=== PATIENT | female | born 1995 | race Two or more races ===

== ENCOUNTER 2023-05-22 10:36 | Inpatient (IN) | payer OTHER ==
[~2023-05-22] VITALS: Ht 160 cm; Wt 80.0 kg
[2023-05-22] MEDS ORDERED: ACETAMINOPHEN 325 MG TABLET PO PRN (13:00)
[2023-05-22] MEDS ORDERED: MAGNESIUM HYDROXIDE SUSPENSION 30 ML UDCUP PO PRN (13:00)
[2023-05-22] MEDS ORDERED: ZOLPIDEM TARTRATE 5 MG TABLET PO PRN (13:00)
[2023-05-22] MEDS ORDERED: BENZONATATE 100 MG CAPSULE PO PRN (13:00)
[2023-05-22 13:28] LABS: COVID AG,FIA SOURCE NASAL SWAB
[2023-05-22 13:51] LABS: SARS-COV2 (COVID) ANTIGEN,FIA Negative (Negative)
[2023-05-22] MEDS: HEPARIN SODIUM,PORCINE 5,000 UNITS/ML VIAL SQ SCH ×2 (15:13→23:51)
[2023-05-22 15:32] LABS: APPEARANCE,URINE CLEAR (CLEAR); BILIRUBIN,URINE NEGATIVE (NEGATIVE); COLOR,URINE YELLOW (YELLOW); GLUCOSE, URINE (UA) NEGATIVE (NEGATIVE); LEUKOCYTE ESTERASE ,URINE NEGATIVE (NEGATIVE); NITRATE,URINE NEGATIVE (NEGATIVE); OCCULT BLOOD,URINE NEGATIVE (NEGATIVE); PROTEIN,URINE NEGATIVE (NEGATIVE); SPECIFIC GRAVITIY, URINE 1.019 (1.003-1.030); UROBILINOGEN,URINE <=1.0 mg/dL (<=1.0)
[2023-05-22 17:09] VITALS: BP 109/57; PULSE 58; RESP 20; TEMP 98.6; O2SAT 100
[2023-05-22 17:37] VITALS: BP 109/57; PULSE 58; RESP 20; TEMP 98.6
[2023-05-22 20:32] VITALS: BP 109/61; PULSE 60; RESP 20; TEMP 97.8
[2023-05-23 05:22] VITALS: BP 98/54; PULSE 57; RESP 18; TEMP 97.6
[2023-05-23 08:13] VITALS: BP 106/56; PULSE 61; RESP 18; TEMP 97.8
[2023-05-23] MEDS: FAMOTIDINE 20 MG TABLET PO SCH (08:18)
[2023-05-23] MEDS: HEPARIN SODIUM,PORCINE 5,000 UNITS/ML VIAL SQ SCH ×3 (08:18→22:59)
[2023-05-23 19:35] VITALS: BP 122/52; PULSE 66; RESP 18; TEMP 99
[2023-05-24 04:05] VITALS: BP 102/55; PULSE 60; RESP 18; TEMP 98.3
[2023-05-24] MEDS: FAMOTIDINE 20 MG TABLET PO SCH (07:40)
[2023-05-24] MEDS: HEPARIN SODIUM,PORCINE 5,000 UNITS/ML VIAL SQ SCH ×3 (07:42→23:41)
[2023-05-24 08:10] VITALS: BP 112/60; PULSE 55; RESP 20; TEMP 98.1
[2023-05-24 15:52] VITALS: BP 110/72; PULSE 71; RESP 20; TEMP 99
[2023-05-24 19:35] VITALS: BP 124/46; PULSE 69; RESP 20; TEMP 98.2
[2023-05-25 03:25] VITALS: BP 95/58; PULSE 53; RESP 20; TEMP 97.9
[2023-05-25 08:31] VITALS: BP 108/63; PULSE 53; RESP 18; TEMP 98.1
[2023-05-25] MEDS: HEPARIN SODIUM,PORCINE 5,000 UNITS/ML VIAL SQ SCH ×3 (09:07→23:40)
[2023-05-25] MEDS: FAMOTIDINE 20 MG TABLET PO SCH (09:07)
[2023-05-25 17:12] VITALS: BP 112/68; PULSE 80; RESP 20; TEMP 98.9
[2023-05-25 20:05] VITALS: BP 126/54; PULSE 55; RESP 20; TEMP 98.9
[2023-05-26 04:56] VITALS: BP 103/56; PULSE 58; RESP 18; TEMP 98
[2023-05-26 08:00] VITALS: BP 110/65; PULSE 65; RESP 18; TEMP 97.9
[2023-05-26] MEDS: FAMOTIDINE 20 MG TABLET PO SCH (08:59)
[2023-05-26] MEDS: HEPARIN SODIUM,PORCINE 5,000 UNITS/ML VIAL SQ SCH ×3 (09:06→23:04)
[2023-05-26 21:39] VITALS: BP 102/56; PULSE 60; RESP 18; TEMP 97.6
[2023-05-27 05:06] VITALS: BP 110/52; PULSE 58; RESP 18; TEMP 98.2
[2023-05-27 07:00] VITALS: BP 118/64; PULSE 66; RESP 20; TEMP 97.8
[2023-05-27] MEDS: HEPARIN SODIUM,PORCINE 5,000 UNITS/ML VIAL SQ SCH ×2 (09:11→16:40)
[2023-05-27] MEDS: FAMOTIDINE 20 MG TABLET PO SCH (09:13)
[2023-05-27 17:56] LABS: COVID AG,FIA SOURCE NASAL SWAB
[2023-05-27 18:06] LABS: SARS-COV2 (COVID) ANTIGEN,FIA Negative (Negative)
[2023-05-27 20:38] VITALS: BP 100/56; PULSE 68; RESP 18; TEMP 98.4
[2023-05-28] MEDS: HEPARIN SODIUM,PORCINE 5,000 UNITS/ML VIAL SQ SCH ×3 (00:54→16:54)
[2023-05-28 05:01] VITALS: BP 131/71; PULSE 50; RESP 18; TEMP 97.4
[2023-05-28 08:37] VITALS: BP 107/51; PULSE 68; RESP 18; TEMP 98.9
[2023-05-28] MEDS: FAMOTIDINE 20 MG TABLET PO SCH (08:42)
[2023-05-28 17:38] VITALS: BP 104/60; PULSE 62; RESP 18; TEMP 98.2
[2023-05-28 19:45] VITALS: BP 108/50; PULSE 58; RESP 16; TEMP 98.8
[2023-05-29] MEDS: HEPARIN SODIUM,PORCINE 5,000 UNITS/ML VIAL SQ SCH ×3 (00:20→16:42)
[2023-05-29 04:10] VITALS: BP 108/58; PULSE 52; RESP 16; TEMP 98.6
[2023-05-29] MEDS: FAMOTIDINE 20 MG TABLET PO SCH (08:35)
[2023-05-29 09:14] VITALS: BP 110/46; PULSE 62; RESP 17; TEMP 98.5
[2023-05-29 20:14] VITALS: BP 105/56; PULSE 63; RESP 18; TEMP 99.5
[2023-05-30] MEDS: HEPARIN SODIUM,PORCINE 5,000 UNITS/ML VIAL SQ SCH ×4 (00:20→23:32)
[2023-05-30 05:11] VITALS: BP 109/56; PULSE 58; RESP 18; TEMP 98.2
[2023-05-30] MEDS: FAMOTIDINE 20 MG TABLET PO SCH (08:04)
[2023-05-30 09:50] VITALS: BP 100/47; PULSE 64; RESP 18; TEMP 98.8
[2023-05-30 20:10] VITALS: BP 104/61; PULSE 58; RESP 20; TEMP 97.5
[2023-05-31 04:45] VITALS: BP 110/60; PULSE 51; RESP 16; TEMP 98.1
[2023-05-31] MEDS: FAMOTIDINE 20 MG TABLET PO SCH (08:57)
[2023-05-31] MEDS: HEPARIN SODIUM,PORCINE 5,000 UNITS/ML VIAL SQ SCH ×2 (08:57→16:34)
[2023-05-31 20:01] VITALS: BP 105/63; PULSE 71; RESP 18; TEMP 98.2
[2023-06-01] MEDS: HEPARIN SODIUM,PORCINE 5,000 UNITS/ML VIAL SQ SCH ×3 (00:20→16:40)
[2023-06-01 04:32] VITALS: BP 98/54; PULSE 64; RESP 18; TEMP 97.7
[2023-06-01 08:00] VITALS: BP 108/60; PULSE 76; RESP 18; TEMP 98.3
[2023-06-01] MEDS: FAMOTIDINE 20 MG TABLET PO SCH (09:25)
[2023-06-01 10:21] LABS: COVID AG,FIA SOURCE NASOPHARYNGEAL
[2023-06-01 10:45] LABS: SARS-COV2 (COVID) ANTIGEN,FIA Negative (Negative)
[2023-06-01 19:15] VITALS: BP 104/66; PULSE 79; RESP 18; TEMP 98.6
[2023-06-02] MEDS: HEPARIN SODIUM,PORCINE 5,000 UNITS/ML VIAL SQ SCH (00:28)
[2023-06-02 04:00] VITALS: BP 105/53; PULSE 76; RESP 18; TEMP 97.6
== END 2023-06-02 06:04 | DRG 179 ==
LOC: EMS 10:36 → AHU 13:09 → 6N 16:00 → 6S 20:25
PROVIDERS: ADMIT Internal Medicine; ATTEND Hospitalist
DX: U07.1 COVID-19 (principal); J06.9 Acute upper respiratory infection, unspecified; E66.9 Obesity, unspecified; Z68.31 Body mass index [BMI] 31.0-31.9, adult
CPT/HCPCS: 81003; 99285; J1644